=== PATIENT | male | born 2005 | race Hispanic/Latino ===

== ENCOUNTER 2024-05-28 12:02 | Emergency (ER) | payer SELFPAY ==
[2024-05-28] VITALS (17 sets, daily range): BP systolic 92–119; BP diastolic 55–68
[~2024-05-28] VITALS: Ht 165.1 cm; Wt 58.9 kg
[2024-05-28] MEDS ORDERED: ONDANSETRON HCl 4 MG/2 ML SDV IV ONE (12:10)
[2024-05-28] MEDS ORDERED: SODIUM CHLORIDE 0.9% 1,000 ML IV ONE (12:10)
== END 2024-05-28 16:54 | disposition home or self-care (01) | DRG 897 ==
LOC: ED 12:02
DX: F12.929 Cannabis use, unspecified with intoxication, unspecified (principal)